=== PATIENT | female | born 1980 | race American Indian/Alaskan Native ===

== ENCOUNTER 2017-04-26 21:14 | Emergency (ER) | payer SELFPAY ==
[2017-04-26 21:14] VITALS: BMI 36.5
[2017-04-26 21:27] VITALS: BP 115/74; PULSE 69; RESP 18; TEMP 98.4; O2SAT 99
--- NOTE | 2017-04-26 21:49 | ED PDOC ---
Lower Extremity Pain/Injury Time Seen by Provider: 04/26/17 21:30 Chief Complaint (Nursing): Lower Extremity Problem/Injury Chief Complaint (Provider): Lower Extremity Problem/Injury History Per: Patient History/Exam Limitations: no limitations Onset/Duration Of Symptoms: Hrs (a few hours prior to arrival ) Additional Complaint(s): Mesha Copeland, 36 year old female presents to the ED on 04/26/17 after experiencing an injury to her fractured right ankle a few hours prior to arrival. The patient states she fractured her right ankle 8 days prior to arrival and was initially seen at [facility]. A few hours prior to arrival , the patient states she tripped over her dog, then hearing a pop in her fractured right ankle which prompted her to visit the emergency room today. Past Medical History Reviewed: Historical Data, Nursing Documentation, Vital Signs Vital Signs: Last Vital Signs Temp 98.4 F 04/26/17 21:23 Pulse 69 04/26/17 21:23 Resp 18 04/26/17 21:23 BP 115/74 04/26/17 21:23 Pulse Ox 99 04/26/17 21:23 - Medical History PMH: Anemia, Post Traumatic Stress Disorder Denies: Chronic Kidney Disease - Surgical History Surgical History: Cholecystectomy - Family History Family History: States: Unknown Family Hx - Immunization History Hx Tetanus Toxoid Vaccination: Yes Hx Influenza Vaccination: No Hx Pneumococcal Vaccination: No - Home Medications Home Medications: Ambulatory Orders Medication Instructions Recorded Ibuprofen [Motrin] 600 mg PO Q8 #30 tab 04/19/17 SEROquel 04/19/17 Zoloft 04/19/17 traMADol [Ultram] 50 mg PO Q8 #20 tab 04/19/17 - Allergies Allergies/Adverse Reactions: Allergies Allergy/AdvReac Type Severity Reaction Status Date / Time No Known Allergies Allergy Verified 04/19/17 11:59 Review of Systems ROS Statement: Except As Marked, All Systems Reviewed And Found Negative Musculoskeletal: Positive for: Leg Pain (injury to right ankle fracture ) Physical Exam - Reviewed Nursing Documentation Reviewed: Yes Vital Signs Reviewed: Yes - Physical Exam Appears: Positive for: Non-toxic, No Acute Distress Head Exam: Positive for: ATRAUMATIC, NORMOCEPHALIC Neurologic/Psych: Positive for: Alert, Oriented (x3) - ECG O2 Sat by Pulse Oximetry: 99 (RA) Pulse Ox Interpretation: Normal Medical Decision Making Medical Decision Making: Initial Impression: Injury to right ankle fracture Initial Plan: * Ankle Right 3 Views Routine [RAD] Stat XR: (+) Frature, remains unchanged from primary Advised to remain in splint, follow up with Podiatry clinic Scribe Attestation: Documented by Kayla Barros, acting as a scribe for Jovita Lu PA-C. Provider Scribe Attestation: All medical record entries made by the Scribe were at my direction and personally dictated by me. I have reviewed the chart and agree that the record accurately reflects my personal performance of the history, physical exam, medical decision making, and the department course for this patient. I have also personally directed, reviewed, and agree with the discharge instructions and disposition. Disposition - Clinical Impression Clinical Impression: Ankle injury - Patient ED Disposition Is Patient to be Admitted: No - Disposition Referrals: Podiatry Clinic [Outside] Disposition: Routine/Home Disposition Time: 23:30 Condition: STABLE Instructions: Ankle Fracture (ED) Forms: [employer] (Swedish) - POA Present On Arrival: None
--- NOTE | 2017-04-27 07:40 | RAD ---
PROCEDURE: Right Wrist Radiographs. HISTORY: hx of Fracture COMPARISON: None. FINDINGS: BONES: Distal fibular fracture. JOINTS: Normal. No dislocation. SOFT TISSUES: Normal. OTHER FINDINGS: None. IMPRESSION: Distal fibular fracture.
== END 2017-04-26 23:26 | disposition home or self-care (01) ==
LOC: H.ER 21:14
DX: Z47.89 Encounter for other orthopedic aftercare (principal); F43.10 Post-traumatic stress disorder, unspecified